=== PATIENT | female | born 1945 | race Caucasian/White ===

== ENCOUNTER → 2018-12-02 11:23 | Outpatient (CLI) | payer MEDICARE ==
[2011-09-25 13:16] VITALS: BMI 38.5
[2018-12-02 13:05] LABS: INR 1.24 (0.85-1.17); PROTIME 15.1 SECONDS (11.6-15.0)
== END | disposition home or self-care (01) ==
LOC: D.LABREF 11:23
PROVIDERS: ATTEND Internal Medicine
DX: I48.91 Unspecified atrial fibrillation (principal)

== ENCOUNTER → 2018-12-18 14:45 | Outpatient (CLI) | payer MEDICARE ==
[2011-09-25 13:16] VITALS: BMI 38.5
[2018-12-18 15:27] LABS: INR 2.27 (0.85-1.17); PROTIME 24.4 SECONDS (11.6-15.0)
== END | disposition home or self-care (01) ==
LOC: D.LABREF 14:45
PROVIDERS: ATTEND Internal Medicine
DX: Z51.81 Encounter for therapeutic drug level monitoring (principal); Z79.01 Long term (current) use of anticoagulants

== ENCOUNTER → 2019-03-19 12:48 | Outpatient (CLI) | payer MEDICARE ==
[2011-09-25 13:16] VITALS: BMI 38.5
[2019-03-19 13:22] LABS: INR 2.4 (0.85-1.17); PROTIME 25.5 SECONDS (11.6-15.0)
== END | disposition home or self-care (01) ==
LOC: D.LABREF 12:48
PROVIDERS: ATTEND Internal Medicine
DX: Z79.01 Long term (current) use of anticoagulants (principal)